=== PATIENT | female | born 2005 | race Caucasian/White ===

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

== ENCOUNTER → 2024-02-15 13:39 | Outpatient (BNVA) | payer MEDICAID, SELFPAY | PROVIDERS: Family Provider Nurse Practitioner Family; PCP Nurse Practitioner Family; Visit Provider Nurse Practitioner Family | DX: N92.6 Irregular menstruation, unspecified (principal); H65.93 Unspecified nonsuppurative otitis media, bilateral; R53.83 Other fatigue | CPT/HCPCS: 80053; 82306; 83540; 84443; 85025 ==

== ENCOUNTER → 2025-09-26 15:58 | Outpatient (BNVA) | payer MEDICAID, SELFPAY | PROVIDERS: Family Provider Nurse Practitioner Family; PCP Nurse Practitioner Family; Visit Provider Clinical Nurse Specialist Adult Health | DX: R53.83 Other fatigue (principal); G47.10 Hypersomnia, unspecified | CPT/HCPCS: 80053; 82306; 82607; 82728; 82746; 83036; 83540; 84443; 85025 ==